=== PATIENT | female | born 1980 | race Caucasian/White ===

== ENCOUNTER 2020-02-26 20:34 | Emergency (ER) | payer OTHER ==
[~2020-02-26] VITALS: Ht 157.5 cm; Wt 90.7 kg
[2020-02-26] MEDS ORDERED: ALEVE220 M1 PO (20:41)
[2020-02-26 21:18] LABS: ABSOLUTE NEUTROPHILS 7.3 thou/uL (1.4-8.2); BASOPHILS 0.4 % (0.0-2.0); EOSINOPHILS 1.2 % (0.0-3.0); HEMATOCRIT 40.6 % (37.0-47.0); HEMOGLOBIN 13.7 gm/dL (12.0-15.0); LYMPHOCYTES 15.4 % (24.0-44.0); MCH 30.6 pg (26.0-34.0); MCHC 33.7 g/dL (28.0-37.0); MCV 90.8 fL (80.0-100.0); MONOCYTES 5.8 % (1.0-8.0); PLATELET COUNT 242 thou/uL (150-400); POLYS 77.2 % (36.0-66.0); RBC 4.47 mil/uL (4.20-5.00); RDW 15.3 % (10.5-14.5); WBC 9.4 thou/uL (4.0-11.0)
[2020-02-26 21:31] LABS: ANION GAP 7 mmol/L (7-16); BUN 23 mg/dL (7-18); CHLORIDE 103 mmol/L (98-107); CO2 23 mmol/L (21-32); CREATININE 0.8 mg/dL (0.6-1.0); GLUCOSE 93 mg/dL (74-106); POTASSIUM 3.9 mmol/L (3.5-5.1); SODIUM 133 mmol/L (136-145)
[2020-02-26 21:41] LABS: ALBUMIN 2.8 g/dL (3.4-5.0); SGOT 22 U/L (15-37); SGPT 18 U/L (30-65); TOTAL BILIRUBIN 0.3 mg/dL (0.2-1.0); TOTAL PROTEIN 5.5 g/dL (6.4-8.2); TROPONIN-I <0.06 ng/mL (<0.06)
[2020-02-27 00:34] VITALS: BP 117/73
--- NOTE | 2020-02-27 15:52 | EKG ---
[facility] [place] [address] ELECTROCARDIOGRAM REPORT Name: MACK KIM Room #: DEP [facility]#: [id number] Admission: 02/26/20 Attend Phys: Discharge: 02/27/20 Date of : 78 Report #: [id number] THIS REPORT FOR: cc: MAYTE - Meena family physician/PCP FAM - No family physician/PCP Arnold Alexis MD [facility] THIS REPORT FOR: //name// [facility] ED Test Date: 2020-02-26 Test Time: 20:49:12 Pat Name: MACK KIM Department: Room: Gender: F Grid Operator: [facility] : 1980 Requested By: Titus Razo Order Number: [id number] MD: Arnold Alexis Measurements Intervals [place] Rate: 71 P: 35 MA: 146 QRS: 38 QRSD: 98 T: 14 QT: 406 QTc: 442 Interpretive Statements Sinus rhythm Normal tracing No previous ECG available for comparison Electronically Signed On 02-27-2020 15:52:21 CDT by Arnold Alexis [email or web address] <ELECTRONICALLY SIGNED> By: Arnold Alexis MD, [facility] 02/27/20 1552 48 48 Arnold Alexis MD, [facility] /EPI
== END 2020-02-27 00:34 | disposition home or self-care (01) ==
LOC: ER 20:34
PROVIDERS: Physician Assistant
DX: R07.89 Other chest pain (principal); M79.7 Fibromyalgia; F17.210 Nicotine dependence, cigarettes, uncomplicated; Z98.890 Other specified postprocedural states; Z79.899 Other long term (current) drug therapy; Z88.0 Allergy status to penicillin